=== PATIENT | male | born 1980 | race Caucasian/White ===

== ENCOUNTER 2022-04-10 20:32 | Emergency (ER) | payer BC ==
[~2022-04-10] VITALS: Ht 175.3 cm; Wt 81.6 kg
--- NOTE | 2022-04-10 21:00 | NUR ---
DR. ALMODOVAR AT BEDSIDE, MSE IN PROGRESS.
[2022-04-10] MEDS ORDERED: hydrOXYzine HCL 25 MG TABLET ONE (21:12)
[2022-04-10] MEDS ORDERED: IBUPROFEN 400 MG TABLET ONE (21:12)
[2022-04-10] MEDS ORDERED: hydrOXYzine HCL 25 MG TABLET PO ONE (21:15)
[2022-04-10] MEDS ORDERED: IBUPROFEN 400 MG TABLET PO ONE (21:15)
--- NOTE | 2022-04-10 21:18 | NUR ---
Patient eloped from facility. ER physician (Dr. Hess) notified.
== END 2022-04-10 21:20 | disposition left against medical advice (07) ==
LOC: ER 20:36
DX: Z53.21 Procedure and treatment not carried out due to patient leaving prior to being seen by health care provider (principal)
CPT/HCPCS: A4663